=== PATIENT | female | born 1960 | race Caucasian/White ===

== ENCOUNTER 2018-08-17 16:04 | Emergency (ER) | payer MEDICAID ==
[~2018-08-17] VITALS: Ht 168.9 cm; Wt 81.0 kg
[2018-08-17 16:09] VITALS: BP 140/71
== END 2018-08-17 17:18 | disposition home or self-care (01) ==
LOC: ER 16:05
DX: F41.9 Anxiety disorder, unspecified (principal); R06.02 Shortness of breath; F43.9 Reaction to severe stress, unspecified
CPT/HCPCS: 93005; 99284